=== PATIENT | female | born 1960 | race Caucasian/White ===

== ENCOUNTER 2017-03-23 20:11 | Inpatient (IN) | payer BC ==
--- NOTE | ~2017-03-23 | EKG ---
PATIENT: MAXIMUS DESOUZA UNIT #: [id number] Ventricular Rate: 103 BPM Atrial Rate: 103 BPM P-R Interval: 190 ms QRS Duration: 106 ms Q-T Interval: 374 ms QTC Calculation(Bezet): 489 ms P [place]: 62 degrees Calculated R [place]: 59 degrees Calculated T [place]: 28 degrees Diagnosis Line: Sinus tachycardia Diagnosis Line: Otherwise normal ECG Diagnosis Line: When compared with ECG of 28-JUL-2015 13:14, Diagnosis Line: QRS duration has increased Diagnosis Line: Nonspecific T wave abnormality no longer evident Diagnosis Line: in Anterior leads Diagnosis Line: Confirmed by VONDA PARSONS MD ([id number]) on Diagnosis Line: 03/24/2017 8:55:38 AM INTERPRETING MD: JQAUELINE DOE
--- NOTE | ~2017-03-23 | DS ---
Unit #: [id number] #: [id number] Patient: MAXIMUS DESOUZA [id number] [address] [address] [id number] I MR#: [id number] NAME: MAXIMUS DESOUZA ROOM: 555 Age: 57 Sex: F Admission Date: 03/23/2017 : 1960 Discharge Date: 03/25/2017 Attending Physician: Dwaine Vega M.D. Primary Care Physician: Chichi Hancock, Risa DISCHARGE SUMMARY REASON FOR ADMISSION Intractable nausea, vomiting, acute kidney injury. HISTORY OF PRESENT ILLNESS/HOSPITAL COURSE Patient is a 57-year-old female very pleasant with prior history of diabetes, gastritis, hypertension, coronary artery disease, cognitive impairment, was transferred from [facility] emergency department secondary to acute kidney injury as well as intractable nausea and vomiting. She was noted to have creatinine level of 5 and therefore was transferred at her request to [facility] for ongoing evaluation. While she was here she received IV fluids ongoing and this morning her creatinine now stands at 0.9. She states that she feels much better. She wishes to have a regular diet. If patient does tolerate a regular diet she will be discharged home. She has received symptomatic support in regards to her nausea while she has been here including Zofran. Also noted patient does have a prior history of hypertension. She was on several blood pressure medications at home including clonidine, Zestril as well as Coreg at 12.5 p.o. q day. These medications have been adjusted secondary to hypotension which was seen on admission. Please see below for appropriate list. Patient will be discharged home later this afternoon after she tolerates diet well with the understanding she will follow up with her primary care physician. It is certainly in the differential the patient does have an underlying history of gastroparesis secondary to poorly controlled diabetes and this too will be managed as an outpatient by her primary care physician. FINAL DISCHARGE DIAGNOSIS 1. Acute kidney injury, now resolved. 2. Intractable nausea and vomiting, improving. 3. Diabetes with insulin dependence. 4. Likely diabetic gastroparesis. 5. Erosive esophagitis/gastritis on prior esophagogastroduodenoscopy in 2013. 6. Polyps colon 2013. 7. Systemic lupus erythematosus. 8. Splenic hematoma. 9. Hypertension. 10. Hyperlipidemia. 11. Coronary artery disease. 12. Systolic heart failure, ejection fraction 45-50%. Unit #: [id number] #: [id number] Patient: MAXIMUS DESOUZA 13. Upper extremity DVT after PICC line was placed in the past. 14. Breast cancer status post bilateral lumpectomy and/or chemotherapy. 15. Recurrent history of pancreatitis, likely secondary to alcohol and/or tobacco. 16. Cognitive impairment. FINAL DISCHARGE MEDICATIONS 1. Lyrica 100 mg p.o. q 8. 2. Coreg 3.125 mg p.o. b.i.d. 3. Lisinopril 20 mg p.o. daily. 4. Levemir 30 unit subcu q h.s. 5. NovoLog 10 units with each meal. 6. Aspirin 81 mg daily. 7. Zanaflex 4 mg p.o. q 8 p.r.n. DISCHARGE CONDITION Stable. DISCHARGE DISPOSITION Home. FOLLOW UP PCP within 7-10 days. Dictated by... Dwaine Vega M.D. JOHANA/kathy TD: 03/27/2017 06:25 JOB #: [id number] DISCHARGE SUMMARY Page 1 of 1 X Dwaine Vega MD X DISCHARGE SUMMARY
--- NOTE | ~2017-03-23 | HP ---
Unit #: [id number] #: [id number] Patient: MAXIMUS DESOUZA [id number] [address] [place], [place] [address] [id number] I MR#: [id number] NAME: MAXIMUS DESOUZA ROOM: 555 Age: 57 Sex: F Admission Date: 03/23/2017 : 1960 Attending Physician: Rochelle Brar M.D. Primary Care Physician: Chichi Hancock Aprn HISTORY AND PHYSICAL CHIEF COMPLAINT Intractable nausea, vomiting and diarrhea with acute kidney injury. HISTORY This pleasant 57-year-old female with AODM, gastritis, hypertension, CAD, was transferred from [facility] emergency department for acute kidney injury. The patient states that she was well until five days prior to admission when she developed diarrhea, which became quite dark in appearance, along with anorexia and then nausea with three episodes of nonbloody emesis. Began to experience epigastric and left upper quadrant pain. When she attempted to stand she would feel lightheaded and fall. Has noted decreasing urinary output as well. She went to [facility] emergency department last evening where she was found to be hypotensive, with systolic blood pressures of 80 to 90. Labs showed new acute kidney injury with a BUN of 70, creatinine 5. She was also found to be anemic, although has been anemic in the past as well. The patient was bolused with a total of 3 L of saline, and currently is making urine, currently is feeling somewhat improved. Unfortunately there are no Hemoccult cards on to check a Hemoccult. She is tender in the epigastric left upper quadrant region, which she states is similar to her previous pancreatitis. PAST MEDICAL HISTORY 1. AODM. 2. Patient states that she developed acute kidney injury after becoming septic some years ago. Otherwise has normal renal function. 3. Erosive esophagitis and gastritis on previous EGD by Dr. Berger. Last colonoscopy was around 2013 and polyps were removed at that time. 4. SLE. 5. Splenic hematoma. 6. Hypertension. 7. Hyperlipidemia. 8. CAD, status post PCI and stent to the LAD with ejection fraction of 45% to 50%. 9. Upper extremity DVT after a PICC line. 10. Port in place. 11. Breast cancer, status post bilateral lumpectomy and chemotherapy. 12. Recurrent syncope thought to be vasovagal. 13. Recurrent pancreatitis. 14. Exploratory lap. 15. Hysterectomy. 16. Cholecystectomy. 17. Port in place. Unit #: [id number] #: [id number] Patient: MAXIMUS DESOUZA ALLERGIES Ultram, Cardizem and Norvasc. HOME MEDICATIONS Lisinopril 40 mg daily; Coreg written as 20 mg b.i.d. but it does not come in this strength; Zanaflex 6 mg q.i.d.; Phenergan 25 mg q.i.d.; ibuprofen 800 mg b.i.d.; NovoLog 10 units t.i.d. with meals plus sliding scale insulin; Levemir 30 units subcu q.h.s., which the patient has not been taking due to p.o. intake. FAMILY HISTORY CAD colon cancer. SOCIAL HISTORY The patient lives with her and disabled grandchild. She is a lifelong nonsmoker and does not drink alcohol. REVIEW OF SYSTEMS Notable for nausea, vomiting, diarrhea, or abdominal pain, near syncope, falling, diabetes, erosive gastritis, esophagitis, SLE, hypertension, hyperlipidemia, breast cancer, recurrent pancreatitis, CAD, above mentioned surgeries. All other systems were reviewed and are otherwise negative. PHYSICAL EXAMINATION GENERAL: Pleasant, obese, 55-year-old female currently in no acute distress. Again systolic blood pressures were as low as 80-90 initially, last systolic blood pressure I believe was 110 prior to transfer. Pulse 86, respirations 24, temperature 98, O2 saturation 92%. HEENT: Eyes - PERRLA, extraocular muscles are intact. Pharynx is benign. NECK: Supple without adenopathy or thyromegaly. CHEST: Clear. CARDIAC: Normal S1 and S2 without murmur. There is a port in left upper chest. ABDOMEN: Bowel sounds are present, tender in the epigastric left upper quadrant without rebound or guarding. No hepatosplenomegaly or masses. EXTREMITIES: Without clubbing, cyanosis or edema. Pedal pulses are present. NEUROLOGIC: Patient is awake, alert and oriented. Cranial nerves are intact. Equal strength throughout. DIAGNOSTIC STUDIES LABS: Hematocrit is 29.5, white blood count is 20, normal MCV, normal lactic acid. SMA 12 - glucose 163, BUN 73, creatinine 5, up from a normal BUN and creatinine 08/2015, chloride 94, CO2 21, calcium 7.7, with an albumin of 3.4, alk phos 226, anion gap 21. Urinalysis - specific gravity 1.025, 2+ protein, 2+ bilirubin, 1+ blood, positive nitrates but rare white cells and red cell with trace bacteria. ASSESSMENT 1. Possible gastroenteritis, although patient reports very dark stools. Unfortunately there is no Hemoccult cards on / for me to check. 2. Acute kidney injury secondary to dehydration, in combination with medicines, and possibly an element of ATN given hypotension. 3. History of hypertension with low blood pressure improved after IV fluids. 4. Chronic normocytic anemia. 5. AODM. Unit #: [id number] #: [id number] Patient: MAXIMUS DESOUZA 6. CAD with mild LV dysfunction, ejection fraction 45% to 50%, status post PCI and stent to the LAD. 7. History of recurrent pancreatitis with complaints of epigastric and left upper quadrant pain. 8. History of erosive gastritis, esophagitis and polyps in the colon removed in 2013. 9. Hyperlipidemia. 10. Breast cancer treated. 11. Leukocytosis. PLANS 1. Recheck labs. Patient received 3 L of saline. Will also ask for a repeat urinalysis and blood cultures. 2. Obtain EKG. 3. Stool cultures, check Hemoccult. 4. Check CPK. 5. IV fluids and supportive treatment. 6. Patient requests Dr. Berger to see in consultation. 7. Proton pump inhibitor for now. 8. IV fluids and supportive treatment. 9. Hold RADHA inhibitor. Discontinued ibuprofen. 10. Further workup depending on above. 11. Will check amylase and lipase. Dictated by Rochelle Brar M.D. AML/ts TD: 03/24/2017 05:32 JOB #: [id number] HISTORY AND PHYSICAL Page 1 of 1 X Rochelle Brar MD X HISTORY AND PHYSICAL
--- NOTE | ~2017-03-23 | A ---
[facility] Nutrition Therapy DATE: 03/24/17 Patient: MAXIMUS DESOUZA Physician: DARÍO Address: [address] [place] [address] ROAD Room/Bed: [address] [place] [address], Zip: [place] [address] Admit Date: 03/23/17 Date of : [birth year] Height: 5 4 Weight: 226 102.6 NUTRITIONAL ASSESSMENT: REASON: 3 points malnutrition risk score re: eating poorly + 10 lb weight loss - PATIENT DENIES Consult re: diabetic diet education Admitting Dx: 57 y/o female admitted with PAPITO and N/V/D PMH: DVT, HTN, HLD, DM, CAD, prince, recurrent pancreatitis, gastritis, errosive esophagitis, breast cancer Anthropometrics: Ht: 64", Wt: 102.6 kg, BMI: 38 (Stage II obese) Labs: K+ 3.4, glucose 161, POC 157-181, A1C 13.1 (07/28/15), BUN 56, Creat 2.5, GFR 20.8, Amylase WNL, Lipase low Meds: Zofran prn, Novolog (medium SSI), Levemir, PPI Assessment: Chart reviewed, events noted. Patient denies eating poorly and weight loss, states she has actually gained weight which is reflected in past weights, approx. 12 lbs since late 2014. RD consulted to give diabetic diet education, which the patient requested. No new A1C lab available. does shopping and cooking, states the patient "never gets out of bed." During previous admission on 07/31/15 [address] provided diet education handouts to patient's family. Patient is currently tolerating a full liquid diet, N/V/D resolved. RD provided extensive verbal and written diabetic diet education and encouraged weight loss and increase in activity. Encouraged her to set small obtainable goals and left contact info. Although she at times was talking over me, she seemed to have good understanding and moderate motivation to follow the diet. not present, however encouraged the patient to show him the handouts. Gave patient a list of appropriate outpatient RD's for further education. We also briefly discussed limiting intake of fatty foods due to hx of recurrent pancreatitis. Patient had no chewing/swallowing difficulties despite PMH. See recs below. Dx: 1) Altered nutrition related lab values r/t dietary non-compliance AEB A1C 13.1 on 07/28/15, glucose POC 157-181, need for diabetic diet education. 2) Stage II obese r/t poor dietary habits, lack of physical activity AEB BMI 38. Intervention: Diet education, follow-up as outpatient Monitoring, Evaluation and Goals: 1. Gradual weight loss towards a healthy BMI range. 2. Improvement in labs (lytes, glucose, A1C). [facility] Nutrition Therapy DATE: 03/24/17 Patient: MAXIMUS DESOUZA Physician: DARÍO Address: [address] [address] Room/Bed: [address] [place] [address], Zip: [place] [address] Admit Date: 03/23/17 Date of : [birth year] Height: 5 4 Weight: 226 102.6 3. Understanding/implementation of diabetic diet education. Monitor: Will fully assess at LOS Recommendations: 1. Once tolerating full liquids advance to 45g carb/meal diet. 2. RD provided both verbal and written diabetic/low-fat diet education with handouts and contact info. Gave patient list of outpatient dietitians to follow-up with. Put [place] [facility] physician order for diabetes self management education form in chart so she can receive diet education as outpatient. *This requires a new A1C lab- please obtain* 3. Encourage diet compliance and weight loss, increase in physical activity. Mild nutrition risk Respectfully, Alka Tierney, SHAHRAM, LD [facility] cc: client file
--- NOTE | ~2017-03-23 | CO ---
Unit #: [id number] #: [id number] Patient: MAXIMUS DESOUZA [id number] [address] [address] [id number] I MR#: [id number] NAME: MAXIMUS DESOUZA ROOM: 555 Age: 57 Sex: F Admission Date: 03/23/2017 : 1960 Attending Physician: Dwaine Vega M.D. Primary Care Physician: Chichi Hancock Aprn CONSULTATION REPORT REASON FOR CONSULTATION Intractable nausea, vomiting, diarrhea. HISTORY OF PRESENTING ILLNESS The patient is a very pleasant, 57-year-old female, who states she was in her usual state of health until about 5 days prior to admission, where she began to have diarrhea with associated nonbloody emesis. She was initially treated at [facility]'s ER, where she was found to be hypotensive, received several liters of fluids and found to be in acute kidney injury. She was also anemic, it does appear to be chronic and was subsequently transferred here for further evaluation and workup. PAST MEDICAL HISTORY 1. Diabetes. 2. Erosive esophagitis and gastritis with several small gastric ulcers in 2013. 3. Lupus. 4. Splenic hematoma. 5. Hypertension. 6. Hyperlipidemia. 7. Coronary artery disease. 8. History of upper extremity DVT. 9. History of breast cancer, status post bilateral lumpectomy and chemotherapy, currently has a port in place. 10. Recurrent syncope. 11. Recurrent pancreatitis. 12. History of ex lap. 13. Hysterectomy. 14. Cholecystectomy. ALLERGIES Ultram, Cardizem, and Norvasc. HOME MEDICATIONS Lisinopril, Coreg, Zanaflex, Phenergan, ibuprofen, NovoLog, Levemir. FAMILY HISTORY Notable for coronary artery disease and colon cancer. SOCIAL HISTORY The patient lives with her . She does not smoke, drink alcohol, or use illicit drugs. However, per , she does not follow her diabetic diet closely nor did she get much exercise. Unit #: [id number] #: [id number] Patient: MAXIMUS DESOUZA PHYSICAL EXAMINATION GENERAL: The patient is a very pleasant, 55-year-old female, currently in no acute distress. VITAL SIGNS: Temperature is 99.9, pulse is 104, respirations 20, blood pressure is 144/83. HEENT: PERRLA. NECK: Supple. CARDIAC: S1, S2. LUNGS: Clear to auscultation. ABDOMEN: Soft, rounded, nontender, and nondistended. Positive bowel sounds. NEUROLOGIC: The patient is alert, awake, and oriented x3. DIAGNOSTIC STUDIES LABORATORY RESULTS: BUN and creatinine are 56 and 2.5, which have both improved since initial workup at [facility]; potassium is 3.4. White count is 17.1; hemoglobin is 9.8 and again it does appear to be chronic; hematocrit is 30.6; and platelets are 261. ASSESSMENT AND PLAN 1. Persistent nausea, vomiting, diarrhea consistent with possible viral gastroenteritis. Symptoms do appear to be improved at this time. The patient is tolerating clears. We will advance diet as tolerated. We will plan outpatient workup including repeat scopes. 2. Diabetes. The patient's family has requested dietitian for diabetic diet education. Thank you for this interesting consult. We will continue to follow along. Dictated by... Zeina Phelps A.P.R.N. for Jesika Angela/ora TD: 03/25/2017 12:56 JOB #: [id number] CONSULTATION REPORT Page 1 of 1 X X CONSULTATION REPORT
[~2017-03-23 20:11] MED LIST: ACETAMINOPHEN PO; AMBIEN10 MG PO; ASPIRIN81 MG PO; CARAFATE1 G PO; CLONIDINE HCL0.3 MG PO; COREG PO; COREG6.25 MG PO; COUMADIN5 MG PO; DIFLUCAN INJ; DILTIAZEM ER180 M1 PO; LEVEMIR SUBQ; LISINOPRIL PO; LISINOPRIL-HCTZ1 T19 PO; LOVENOX100 MG/ML INJ; MERREM1 G/VIA1 IV; METOPROLOL TART25 MG PO; MIRALAX17 GM PO; NOVOLOG100 U/ML SUBQ; PHENERGAN25 M1 PO; PLAVIX PO; PROTONIX PO; REGLAN10 MG; REGLAN10 MG PO; SYMBICORT INH; TIZANIDINE HCL4 M1 PO; TYLENOL #3 PO; VANCO-0.9%1.75 GM/50 IV; XANAX1 MG PO; ZANAFLEX4 M1 PO; ZESTORETIC1 TAB PO; [UNRECOGNIZED DRUG - OTHER] INJ
[2017-03-24] MEDS ORDERED: ZANAFLEX PO (00:54)
[2017-03-24] MEDS ORDERED: NOVOLOG100 UNITS/ SUBQ (00:57)
[2017-03-24] MEDS ORDERED: LYRICA100 MG PO (00:58)
[2017-03-24] MEDS ORDERED: AMITRIPTYLINE150 MG PO (00:59)
[2017-03-24 05:58] LABS: BASOPHIL# 0.1 X10e3 (0-0.3); BASOPHIL% 0.3 % (0-2.5); EOSINOPHIL# 0.2 X10e3 (0-0.7); EOSINOPHIL% 1.2 % (0.0-7.0); HEMATOCRIT 30.6 % (35.0-45.0); HEMOGLOBIN 9.8 gm/dL (12.0-16.0); LYMPHOCYTE# 1.7 X10e3 (1.0-3.5); LYMPHOCYTE% 9.9 % (17.0-45.0); MEAN CELL VOLUME 93.1 FL (83-96); MEAN CORPUSCULAR HEMOGLOBIN 29.7 PG (28-34); MEAN CORPUSCULAR HGB CONC 31.9 g/dL (30-36); MEAN PLATELET VOLUME 8.3 FL (6.5-11.5); MONOCYTE# 1.3 X10e3 (0-1.0); MONOCYTE% 7.5 % (3.0-12.0); NEUTROPHIL# 13.9 X10e3 (1.5-7.1); NEUTROPHIL% 81.1 % (40-75); PLATELET COUNT 261 X10e3 (140-420); RED BLOOD COUNT 3.29 X10e (3.90-5.30); RED CELL DISTRIBUTION WIDTH 14.2 % (11.0-15.5); WHITE BLOOD COUNT 17.1 X10e3 (4.0-10.5)
[2017-03-24 06:02] LABS: DIFF IND YES
[2017-03-24 06:17] LABS: PARTIAL THROMBOPLASTIN TIME 26.8 SECONDS (23.5-31.3)
[2017-03-24 06:40] LABS: PLATELET ESTIMATE NORMAL (NORMAL)
[2017-03-24 06:42] LABS: RBC NORMAL YES
[2017-03-24 07:09] LABS: ALBUMIN SERUM 2.9 g/dL (3.5-5.0); BILIRUBIN,TOTAL 0.4 mg/dL (0.2-2.0); BUN/CREATININE RATIO 22.4; CALCIUM SERUM 7.4 mg/dL (8.4-10.2); CREATININE SERUM 2.5 mg/dL (0.6-1.4); GLOM FILT RATE Estimated 20.8 mL/min (>60); POTASSIUM 3.4 mmol/L (3.5-5.1); PROTEIN TOTAL SERUM 6.6 g/dL (6.0-8.3)
[2017-03-24 07:32] LABS: %MB 0.8 % (0.0-4.0); MB 4.3 ng/ml
[2017-03-25 06:34] LABS: HEMATOCRIT 33.2 % (35.0-45.0); HEMOGLOBIN 10.7 gm/dL (12.0-16.0); MEAN CELL VOLUME 91.4 FL (83-96); MEAN CORPUSCULAR HEMOGLOBIN 29.5 PG (28-34); MEAN CORPUSCULAR HGB CONC 32.3 g/dL (30-36); MEAN PLATELET VOLUME 8.2 FL (6.5-11.5); RED BLOOD COUNT 3.63 X10e (3.90-5.30); RED CELL DISTRIBUTION WIDTH 14.4 % (11.0-15.5); WHITE BLOOD COUNT 19.2 X10e3 (4.0-10.5)
[2017-03-25 07:04] LABS: BUN/CREATININE RATIO 21.11; CALCIUM SERUM 8.2 mg/dL (8.4-10.2); CREATININE SERUM 0.9 mg/dL (0.6-1.4); GLOM FILT RATE Estimated 71.5 mL/min (>60); POTASSIUM 4.1 mmol/L (3.5-5.1)
[2017-03-25] MEDS ORDERED: PRINIVIL20 M1 PO (10:26)
[2017-03-25] MEDS ORDERED: COREG3.125 MG PO (10:27)
[2017-03-25] MEDS ORDERED: PROTONIX PO (10:28)
[2017-03-25] MEDS ORDERED: ZOFRAN PO (10:33)
[2017-03-25] MEDS ORDERED: ACETAMINOPHEN PO (10:34)
== END 2017-03-25 15:27 | disposition home or self-care (01) | DRG 683 ==
LOC: C5B 20:11
PROVIDERS: Family Medicine; Internal Medicine
DX: N17.9 Acute kidney failure, unspecified (principal); I50.22 Chronic systolic (congestive) heart failure; E11.43 Type 2 diabetes mellitus with diabetic autonomic (poly)neuropathy; M32.9 Systemic lupus erythematosus, unspecified; K31.84 Gastroparesis; I11.0 Hypertensive heart disease with heart failure; Z79.4 Long term (current) use of insulin; D64.9 Anemia, unspecified; E78.5 Hyperlipidemia, unspecified; I25.10 Atherosclerotic heart disease of native coronary artery without angina pectoris; Z95.5 Presence of coronary angioplasty implant and graft; Z86.718 Personal history of other venous thrombosis and embolism; Z85.3 Personal history of malignant neoplasm of breast; Z90.710 Acquired absence of both cervix and uterus; Z90.49 Acquired absence of other specified parts of digestive tract; Z88.8 Allergy status to other drugs, medicaments and biological substances; Z82.49 Family history of ischemic heart disease and other diseases of the circulatory system; Z80.0 Family history of malignant neoplasm of digestive organs; Z86.010 Personal history of colon polyps; G31.84 Mild cognitive impairment of uncertain or unknown etiology
CPT/HCPCS: 80048; 80053; 82150; 82274; 82550; 82553; 82947; 83690; 84484; 85025; 85027; 85610; 85730; 86850; 86900; 86901; 87040; 87045; 87086; 87088; 87186; 87427; 87899; 93005; J1642; J1815; J2405